=== PATIENT | male | born 1965 | race Caucasian/White ===

== ENCOUNTER 2018-07-31 12:48 | Emergency (ER) | payer OTHER ==
[~2018-07-31] VITALS: Ht 175.3 cm; Wt 95.3 kg
[2018-07-31] MEDS ORDERED: PROZAC20 MG PO (13:16)
[2018-07-31] MEDS ORDERED: AMBIEN10 MG PO (13:16)
[2018-07-31] MEDS ORDERED: BACTRIM DS TAB1 EACH PO (14:54)
== END 2018-07-31 21:33 | disposition home or self-care (01) ==
LOC: ER 12:48
DX: L72.8 Other follicular cysts of the skin and subcutaneous tissue (principal); L02.212 Cutaneous abscess of back [any part, except buttock and flank]; B96.89 Other specified bacterial agents as the cause of diseases classified elsewhere